=== PATIENT | female | born 1990 | race Caucasian/White ===

== ENCOUNTER 2017-01-24 00:09 | Emergency (ER) | payer SELFPAY ==
[~2017-01-24] VITALS: Ht 165.1 cm; Wt 131.5 kg
--- NOTE | 2017-01-24 00:09 | NUR ---
BIB [facility] TO ER BED 5
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
[2017-01-24 00:12] VITALS: BP 142/76
[2017-01-24 00:22] VITALS: BP 142/77
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
--- NOTE | 2017-01-24 00:23 | NUR ---
ALL DISCHARGE INFO/PAPPER WOTK GIVEN BY ER MD DR SALAZAR
== END 2017-01-24 00:22 ==
LOC: MED 00:09
DX: Z02.89 Encounter for other administrative examinations (principal); Z88.6 Allergy status to analgesic agent